=== PATIENT | male | born 1985 | race Caucasian/White ===

== ENCOUNTER 2017-09-02 15:27 | Outpatient (CLI) | payer OTHER | END 2017-09-02 16:01 | disposition home or self-care (01) | LOC: DCC 15:27 | DX: R10.11 Right upper quadrant pain (principal) | CPT/HCPCS: G0463 ==

== ENCOUNTER 2017-09-16 15:31 | Outpatient (CLI) | payer OTHER | END 2017-09-16 16:54 | disposition home or self-care (01) | LOC: DCC 15:31 | DX: R10.9 Unspecified abdominal pain (principal) | CPT/HCPCS: G0463 ==